=== PATIENT | female | born 1960 | race Caucasian/White ===

== ENCOUNTER → 2016-04-12 | Outpatient (CLI) | payer BC, OTHER ==
[2016-04-12 14:15] LABS: THYROXINE (T4) 11.4 UG/DL (4.5-12.0)
== END ==
LOC: M SMT 09:13
PROVIDERS: ATTEND Family Medicine
DX: E03.9 Hypothyroidism, unspecified (principal)

== ENCOUNTER → 2016-10-01 | Outpatient (CLI) | payer BC, OTHER ==
[2016-10-01 14:06] LABS: THYROXINE (T4) 12.3 UG/DL (4.5-12.0)
== END ==
LOC: M SMT 09:15
PROVIDERS: ATTEND Family Medicine
DX: E03.9 Hypothyroidism, unspecified (principal)

== ENCOUNTER → 2016-12-17 | Outpatient (CLI) | payer BC, OTHER ==
--- NOTE | 2016-12-17 13:10 | REPMRS ---
Patient History The patient states she had a clinical breast exam in July 2016. Family history of unknown cancer in mother at age 68. Digital Mammo Screening Bilat: December 17, 2016 - Exam #: [id number] Bilateral CC and MLO view(s) were taken. Technologist: Patricia Ayala, Technologist Prior study comparison: May 08, 2015, bilateral digital mammo screening bilat performed at [facility]. February 12, 2013, bilateral bilat screen digital mammo, performed at [facility] ([facility]). FINDINGS: The breast tissue is heterogeneously dense. This may lower the sensitivity of mammography. There has been no change in the appearance of the mammogram from the prior studies. There is a moderate amount of residual fibroglandular tissue which is fairly symmetric. There is no interval development of dominant mass, areas of architectural distortion, or clustered microcalcification typical of malignancy. ASSESSMENT: BI-RADS/ACR category 1 mammogram. Negative. Recommendation Routine screening mammogram in 1 year (for women over age 40). This mammogram was interpreted with the aid of an FDA-approved computer-aided dectection system. Electronically Signed By: Chencho Garner MD 12/17/16 [id number]
--- NOTE | 2016-12-17 18:41 | REP ---
HISTORY: Pneumonia. COMPARISON: Multiple, the latest 09/12/2015. Once again, there is evidence of biapical pleural parenchymal scarring, status quo. The cardiomediastinal silhouette is unchanged. The heart is not enlarged. In the right lung base, there is a potential 1.2 cm size nodule which has possibly developed since the last exam. This is seen only on the frontal view. There is no change in the osseous structures. IMPRESSION: Possible new right lower lobe lung nodule. CT examination of the chest is warranted. Signed by Vj Rolon DO 12/20/2016 04:42 P
== END ==
LOC: M RAD 12:07
PROVIDERS: ATTEND Family Medicine
DX: Z12.31 Encounter for screening mammogram for malignant neoplasm of breast (principal); Z87.01 Personal history of pneumonia (recurrent)
CPT/HCPCS: 71020; G0202

== ENCOUNTER → 2016-12-27 | Outpatient (CLI) | payer BC, OTHER ==
[2016-12-27 11:35] LABS: MEAN CORPUSCULAR HEMOGLOBIN 29.7 pg (27.0-33.0); MEAN CORPUSCULAR HGB CONC 32.7 g/dl (32.0-36.5); MEAN CORPUSCULAR VOLUME 90.9 fl (80.0-96.0); RED CELL DISTRIBUTION WIDTH 14.3 % (11.5-14.5); WHITE BLOOD COUNT 17.2 10^3/uL (4.0-10.0)
[2016-12-27 11:48] LABS: ALBUMIN 3.8 GM/DL (3.2-5.2); ALBUMIN/GLOBULIN RATIO 1.65 (1.00-1.93); ALKALINE PHOSPHATASE 70 U/L (45-117); ALT/SGPT 17 U/L (12-78); ANION GAP 6 MEQ/L (8-16); AST/SGOT 7 U/L (15-37); BILIRUBIN,TOTAL 0.5 MG/DL (0.2-1.0); BLOOD UREA NITROGEN 24 MG/DL (7-18); CALCIUM LEVEL 8.9 MG/DL (8.5-10.1); CARBON DIOXIDE LEVEL 29 MEQ/L (21-32); CHLORIDE LEVEL 104 MEQ/L (98-107); CREATININE FOR GFR 0.67 MG/DL (0.55-1.02); GLOMERULAR FILTRATION RATE > 60.0 (>51); GLUCOSE, FASTING 86 MG/DL (70-105); POTASSIUM SERUM 4.2 MEQ/L (3.5-5.1); SODIUM LEVEL 139 MEQ/L (136-145); TOTAL PROTEIN 6.1 GM/DL (6.4-8.2)
== END ==
LOC: M SMT 08:26
PROVIDERS: ATTEND Family Medicine
DX: D64.9 Anemia, unspecified (principal); R53.83 Other fatigue

== ENCOUNTER → 2017-01-04 | Outpatient (CLI) | payer BC, OTHER ==
--- NOTE | 2017-01-05 10:01 | REP ---
Clinical: Right lung nodule. Technique: Axial expiratory and inspiratory noncontrast images from the thoracic inlet to the upper abdomen along with coronal and sagittal re-formations. Comparison: 11/18/2008. Findings: By apical bullae remain stable and presumed biapical scarring appears to be more prominent and increased with nodular soft tissue components and fibrosis extending to the pleural surface. The lung levine are otherwise relatively clear and without further significant pulmonary nodule/mass or consolidation. Tracheobronchial tree is patent and without bronchiectasis. No pleural effusion/reaction or pneumothorax. No obvious axillary, hilar or mediastinal adenopathy. Expiratory images demonstrates appropriate decreased lung volumes without evidence for air trapping or abnormality. Surrounding musculoskeletal structures demonstrate age-related changes without focal osseous abnormality. Mild atherosclerotic changes to the thoracic aorta and coronary arteries noted without aortic aneurysm or cardiomegaly. Impression: 1. Chronic-appearing by apical bullae and increased presumed scarring with nodular soft tissue components likely represent benign changes. However, follow-up examination in 6-9 months may be warranted to exclude active process. 2. No further acute consolidation, nodule/mass, or pleural effusion and no obvious adenopathy appreciated. Signed by Pito Friend MD 01/05/2017 09:53 A
== END ==
LOC: M RAD 08:54
PROVIDERS: ATTEND Family Medicine
DX: R91.1 Solitary pulmonary nodule (principal)

== ENCOUNTER → 2017-03-28 | Outpatient (CLI) | payer OTHER, BC ==
[2017-03-28 12:11] LABS: BASO # 0.1 10^3/uL (0.0-0.2); BASO % 0.6 % (0.0-1.0); EOS # 0.3 10^3/uL (0.0-0.50); EOS % 2.6 % (0.0-3.0); HEMATOCRIT 41.2 % (36.0-47.0); HEMOGLOBIN 13.2 g/dl (12.0-16.0); IMMATURE GRANULOCYTE # 0.1 10^3/uL (0-0); IMMATURE GRANULOCYTE % 0.5 % (0-0); LYMPH # 3.1 10^3/uL (1.5-4.5); LYMPH % 31.1 % (24.0-44.0); MEAN CORPUSCULAR HEMOGLOBIN 29.2 pg (27.0-33.0); MEAN CORPUSCULAR VOLUME 91.2 fl (80.0-96.0); MONO # 0.7 10^3/uL (0.0-0.8); MONO % 6.6 % (0.0-5.0); NEUTROPHILS # 5.8 10^3/uL (1.8-7.7); NEUTROPHILS % 58.6 % (36.0-66.0); PLATELET COUNT, AUTOMATED 301 10^3/uL (150-450); RED BLOOD COUNT 4.52 10^6/uL (4.00-5.40); RED CELL DISTRIBUTION WIDTH 13.5 % (11.5-14.5); WHITE BLOOD COUNT 9.8 10^3/uL (4.0-10.0)
[2017-03-28 14:13] LABS: ERYTHROCYTE SEDIMENTATION RATE 4 mm/hr (0-30)
== END ==
LOC: M SMT 08:40
DX: D72.829 Elevated white blood cell count, unspecified (principal); J44.9 Chronic obstructive pulmonary disease, unspecified; M19.90 Unspecified osteoarthritis, unspecified site
CPT/HCPCS: 85025

== ENCOUNTER 2017-12-19 09:08 | Emergency (ER) | payer BC, OTHER ==
[2017-12-19] MEDS: predniSONE 20 MG TAB PO (09:35)
[2017-12-19] MEDS: ACETAMINOPHEN 325 MG TAB PO (09:35)
[2017-12-19] MEDS: IPRATROPIUM 0.5MG/ALBUTEROL 2.5MG INH SOL UD 3ML (DUONEB)(J7620) NEB (09:39)
== END 2017-12-19 11:04 | disposition home or self-care (01) ==
LOC: M ED 09:08
DX: J06.9 Acute upper respiratory infection, unspecified (principal); J44.1 Chronic obstructive pulmonary disease with (acute) exacerbation; E03.9 Hypothyroidism, unspecified; Z72.0 Tobacco use; Z79.899 Other long term (current) drug therapy; Z88.0 Allergy status to penicillin
CPT/HCPCS: 71046

== ENCOUNTER → 2017-12-29 | Outpatient (CLI) | payer BC, OTHER ==
[2017-12-29 10:37] LABS: HEMATOCRIT 40.9 % (36.0-47.0); HEMOGLOBIN 13.7 g/dl (12.0-15.5); MEAN CORPUSCULAR HEMOGLOBIN 29.9 pg (27.0-33.0); MEAN CORPUSCULAR HGB CONC 33.5 g/dl (32.0-36.5); MEAN CORPUSCULAR VOLUME 89.3 fl (80.0-96.0); PLATELET COUNT, AUTOMATED 320 10^3/uL (150-450); RED BLOOD COUNT 4.58 10^6/uL (4.00-5.40); RED CELL DISTRIBUTION WIDTH 14.6 % (11.5-14.5); WHITE BLOOD COUNT 20.7 10^3/uL (4.0-10.0)
[2017-12-29 11:11] LABS: ESTIMATED AVERAGE GLUCOSE 114 MG/DL (60-110); HEMOGLOBIN A1c 5.6 %
[2017-12-29 11:14] LABS: ALBUMIN 3.9 GM/DL (3.2-5.2); ALBUMIN/GLOBULIN RATIO 1.56 (1.00-1.93); ALKALINE PHOSPHATASE 70 U/L (45-117); ALT/SGPT 22 U/L (12-78); ANION GAP 9 MEQ/L (8-16); AST/SGOT 7 U/L (7-37); BILIRUBIN,TOTAL 0.7 MG/DL (0.2-1.0); BLOOD UREA NITROGEN 23 MG/DL (7-18); CALCIUM LEVEL 8.9 MG/DL (8.5-10.1); CARBON DIOXIDE LEVEL 29 MEQ/L (21-32); CHLORIDE LEVEL 105 MEQ/L (98-107); CHOLESTEROL LEVEL 209 MG/DL (<200); CREATININE FOR GFR 0.74 MG/DL (0.55-1.30); GLOMERULAR FILTRATION RATE > 60.0 (>51); GLUCOSE, FASTING 85 MG/DL (70-100); HDL CHOLESTEROL 76 MG/DL (>40); LDL CHOLESTEROL 106 MG/DL (<100); NON-HDL-C 133 MG/DL; POTASSIUM SERUM 4.2 MEQ/L (3.5-5.1); SODIUM LEVEL 143 MEQ/L (136-145); THYROID STIMULATING HORMONE 0.054 uIU/ML (0.358-3.740); TOTAL PROTEIN 6.4 GM/DL (6.4-8.2); TRIGLYCERIDES LEVEL 137 MG/DL (<150)
[2017-12-29 11:15] LABS: TOTAL 25(OH) VITAMIN D 31.3 NG/ML (30.0-100.0)
== END ==
LOC: M SMT 08:11
DX: D64.9 Anemia, unspecified (principal); R53.83 Other fatigue; E03.9 Hypothyroidism, unspecified
CPT/HCPCS: 84443

== ENCOUNTER → 2018-04-12 | Outpatient (CLI) | payer BC ==
[~2018-04-12] MED LIST: ALBU17IN2 INH; DOXY100C37 PO; PRED20TA PO; SYNT100T PO
--- NOTE | 2018-04-12 11:04 | REPMRS ---
Patient History The patient states she had a clinical breast exam in 12/2017. No known family history of cancer. No Hormone Replacement Therapy Digital Woman Screen Mammo: April 12, 2018 - Exam #: [id number] Bilateral CC and MLO view(s) were taken. Technologist: Katelyn Holguin, Technologist Prior study comparison: December 17, 2016, bilateral digital mammo screening bilat, performed at [facility]. May 08, 2015, bilateral digital mammo screening bilat, performed at [facility]. February 12, 2013, bilateral bilat screen digital mammo, performed at [facility] ([facility]). FINDINGS: The breast tissue is heterogeneously dense. This may lower the sensitivity of mammography. There has been some diffuse involutional change bilaterally in the interval since prior mammography. There is a moderate amount of heterogeneously dense fibroglandular tissue which is fairly symmetric. There is no interval development of dominant mass, architectural distortion, or clustered microcalcification typical of malignancy. There has been no change in the appearance of the mammogram from the prior studies. 3-D tomosynthesis shows no additional findings. Assessment: BI-RADS/ACR category 1 mammogram. Negative Mammogram. Recommendation Routine screening mammogram of both breasts in 1 year (for women over age 40). This patient's Lifetime Breast Cancer RIsk is estimated at 10.5 %. This mammogram was interpreted with the aid of an FDA-approved computer-aided dectection system. Electronically Signed By: Zaid Abad MD 04/12/18 1658
== END ==
LOC: M WHC 10:04
PROVIDERS: ATTEND Family Medicine
DX: Z12.31 Encounter for screening mammogram for malignant neoplasm of breast (principal)

== ENCOUNTER → 2018-05-19 | Outpatient (CLI) | payer BC ==
--- NOTE | 2018-05-19 10:02 | REP ---
Clinical: Back pain and sciatica. Technique: Neutral and frog lateral views of the right and left hip. Findings: Osseous structures, joint spaces, and surrounding soft tissues are essentially normal for age and symmetric. No overt osteoarthritic degenerative changes are appreciated. Surrounding soft tissues are normal. Impression: Age-appropriate bilateral hip radiographs. Electronically Signed by Pito Friend MD 05/19/2018 09:54 A
--- NOTE | 2018-05-23 08:38 | REP ---
Clinical: Back pain and sciatica. Technique: AP, lateral, bilateral oblique and coned-down views of the lumbosacral spine. Findings: Generalized osteopenia is appreciated along with moderate/early advanced multilevel degenerative disc osteophyte complexes. Findings include osteophytosis, endplate sclerosis, scattered disc space narrowing and hypertrophic facet changes. Alignment is maintained and there is no evidence for acute fracture / compression injury or subluxation. Impression: Osteopenia and moderate to early advanced multilevel degenerative spondylosis. Electronically Signed by Pito Friend MD 05/23/2018 08:29 A
== END ==
LOC: M RAD 08:46
PROVIDERS: ATTEND Family Medicine
DX: M85.9 Disorder of bone density and structure, unspecified (principal); M47.817 Spondylosis without myelopathy or radiculopathy, lumbosacral region; M16.0 Bilateral primary osteoarthritis of hip

== ENCOUNTER → 2018-07-14 | Outpatient (CLI) | payer BC ==
--- NOTE | 2018-07-14 11:29 | REP ---
Left rib series: Five views including PA chest. History: Contusion. Comparison study: December 19, 2017. Findings: The lungs are hyperinflated consistent with some degree of COPD. Heart is not enlarged. Mediastinum is not widened. There is no evidence of pneumothorax or hydrothorax. No infiltrate is seen. Multiple views of the left rib cage show mild diffuse osteopenia. No rib fracture is seen. No bony destructive lesion. Impression: Negative left rib radiographs. Electronically Signed by Mateo Abad MD 07/14/2018 11:21 A
--- NOTE | 2018-07-14 11:29 | REP ---
Left hip: Two views. History: Contusion. Findings: AP and frog-leg views of the left hip demonstrate diffuse osteopenia. Femoral head is smooth and rounded. Hip joint spaces preserved. Periarticular soft tissues are unremarkable. No fractures seen. Impression: No fracture noted. Electronically Signed by Mateo Abad MD 07/14/2018 11:21 A
== END ==
LOC: M WUC 10:58
PROVIDERS: ATTEND Physician Assistant
DX: S20.212A Contusion of left front wall of thorax, initial encounter (principal); S70.02XA Contusion of left hip, initial encounter; X58.XXXA Exposure to other specified factors, initial encounter; Y92.89 Other specified places as the place of occurrence of the external cause; R91.8 Other nonspecific abnormal finding of lung field

== ENCOUNTER → 2019-07-03 | Outpatient (CLI) | payer BC ==
[~2019-07-03] MED LIST changes: -ALBU17IN2 INH; +PROV108A INH
[2019-07-03 10:54] LABS: HEMATOCRIT 43.3 % (36.0-47.0); HEMOGLOBIN 14.1 g/dl (12.0-15.5); MEAN CORPUSCULAR HEMOGLOBIN 29.6 pg (27.0-33.0); MEAN CORPUSCULAR HGB CONC 32.6 g/dl (32.0-36.5); PLATELET COUNT, AUTOMATED 282 10^3/uL (150-450); RED BLOOD COUNT 4.76 10^6/uL (4.00-5.40); WHITE BLOOD COUNT 9.4 10^3/uL (4.0-10.0)
[2019-07-03 11:16] LABS: HEMOGLOBIN A1c 5.7 %
[2019-07-03 11:32] LABS: ALT/SGPT 17 U/L (12-78); BILIRUBIN,TOTAL 0.5 MG/DL (0.2-1.0); BLOOD UREA NITROGEN 25 MG/DL (7-18); CALCIUM LEVEL 9.1 MG/DL (8.8-10.2); CARBON DIOXIDE LEVEL 27 MEQ/L (21-32); CHLORIDE LEVEL 107 MEQ/L (98-107); CHOLESTEROL LEVEL 215 MG/DL (<200); CHOLESTEROL RISK RATIO 3.307 (<5); CREATININE FOR GFR 0.62 MG/DL (0.55-1.30); GLOMERULAR FILTRATION RATE > 60.0 (>45); GLUCOSE, FASTING 91 MG/DL (70-100); HDL CHOLESTEROL 65 MG/DL (>40); LDL CHOLESTEROL 135 MG/DL (<100); NON-HDL-C 150 MG/DL; POTASSIUM SERUM 4.8 MEQ/L (3.5-5.1); SODIUM LEVEL 139 MEQ/L (136-145); THYROID STIMULATING HORMONE 0.031 uIU/ML (0.358-3.740); THYROXINE (T4) 11.5 UG/DL (4.5-12.0); TOTAL 25(OH) VITAMIN D 26.1 NG/ML (30.0-100.0); TOTAL PROTEIN 6.8 GM/DL (6.4-8.2); TOTAL T3 122.1 NG/DL (60.0-181.0); TRIGLYCERIDES LEVEL 75 MG/DL (<150)
== END ==
LOC: M PLALAB 08:18
PROVIDERS: ATTEND Family Medicine
DX: D64.9 Anemia, unspecified (principal); R53.83 Other fatigue; E03.9 Hypothyroidism, unspecified; E11.9 Type 2 diabetes mellitus without complications

== ENCOUNTER → 2019-11-08 | Outpatient (CLI) | payer BC ==
--- NOTE | 2019-11-10 12:23 | REPMRS ---
Patient History The patient states she had a clinical breast exam in 03/2019. No known family history of cancer. No Hormone Replacement Therapy Digital Woman Screen Mammo: November 08, 2019 - Exam #: [id number] Bilateral CC and MLO view(s) were taken. Technologist: Selina Guzman, Technologist Prior study comparison: April 12, 2018, bilateral digital woman screen mammo performed at [facility]. December 17, 2016, bilateral digital mammo screening bilat, performed at [facility]. May 08, 2015, bilateral digital mammo screening bilat, performed at [facility]. FINDINGS: The breast tissue is heterogeneously dense. This may lower the sensitivity of mammography. The Volpara volumetric breast density category is: C. There is a moderate amount of heterogeneously dense fibroglandular tissue which is fairly symmetric. There is no interval development of dominant mass, architectural distortion, or grouped microcalcification typical of malignancy. There has been no change in the appearance of the mammogram from the prior studies. 3-D tomosynthesis shows no additional findings. Assessment: BI-RADS/ACR category 1 mammogram. Negative Mammogram. Recommendation Routine screening mammogram of both breasts in 1 year (for women over age 40). This patient's Lifetime Breast Cancer RIsk is estimated at 9.9 %. This mammogram was interpreted with the aid of an FDA-approved computer-aided dectection system. Electronically Signed By: Zaid Abad MD 11/10/19 1100
== END ==
LOC: M WHC 07:49
PROVIDERS: ATTEND Family Medicine
DX: Z12.31 Encounter for screening mammogram for malignant neoplasm of breast (principal)

== ENCOUNTER 2020-02-02 09:36 | Emergency (ER) | payer BC, OTHER ==
[~2020-02-02] VITALS: Ht 162.6 cm; Wt 58.1 kg
[2020-02-02] MEDS ORDERED: PRED10PA PO (09:49)
[2020-02-02] MEDS ORDERED: HYDR-4514 PO (09:49)
[2020-02-02 10:59] LABS: BASO % 0.2 % (0.0-1.0); EOS # 0.4 10^3/uL (0.0-0.5); EOS % 2.6 % (0.0-3.0); HEMATOCRIT 41.9 % (36.0-47.0); HEMOGLOBIN 13.4 g/dl (12.0-15.5); LYMPH # 5.4 10^3/uL (1.5-5.0); LYMPH % 31.3 % (24.0-44.0); MEAN CORPUSCULAR HEMOGLOBIN 29.5 pg (27.0-33.0); MEAN CORPUSCULAR VOLUME 92.3 fl (80.0-96.0); MONO # 0.8 10^3/uL (0.0-0.8); MONO % 4.4 % (0.0-5.0); NEUTROPHILS # 10.4 10^3/uL (1.5-8.5); NEUTROPHILS % 60.9 % (36.0-66.0); PLATELET COUNT, AUTOMATED 244 10^3/uL (150-450); RED BLOOD COUNT 4.54 10^6/uL (4.00-5.40)
[2020-02-02 11:06] LABS: WHITE BLOOD COUNT 17.1 10^3/uL (4.0-10.0)
[2020-02-02 11:29] LABS: ALBUMIN 3.7 GM/DL (3.2-5.2); ALT/SGPT 17 U/L (12-78); BILIRUBIN,DIRECT < 0.1 MG/DL (0.0-0.2); BILIRUBIN,TOTAL 0.4 MG/DL (0.2-1.0); BLOOD UREA NITROGEN 20 MG/DL (7-18); CALCIUM LEVEL 8.7 MG/DL (8.8-10.2); CARBON DIOXIDE LEVEL 28 MEQ/L (21-32); CHLORIDE LEVEL 106 MEQ/L (98-107); CK-MB VALUE MASS 1.4 NG/ML (<3.6); CPK CREATINE PHOSPHOKINASE 38 U/L (26-192); CREATININE FOR GFR 0.62 MG/DL (0.55-1.30); GLOMERULAR FILTRATION RATE > 60.0 (>45); GLUCOSE, FASTING 91 MG/DL (70-100); MB/CK RELATIVE INDEX 3.68 (< OR =4); NT-PRO BNP 131 PG/ML (<125); POTASSIUM SERUM 3.4 MEQ/L (3.5-5.1); SODIUM LEVEL 140 MEQ/L (136-145); THYROID STIMULATING HORMONE 0.205 uIU/ML (0.358-3.740); TOTAL PROTEIN 6.2 GM/DL (6.4-8.2); TROPONIN I < 0.02 NG/ML (< 0.10)
[2020-02-02] MEDS ORDERED: ISOVUE-370 76% 100ML VIAL As Ordered ONE ×2 (11:37→13:30)
[2020-02-02] MEDS ORDERED: KETOROLAC 30 MG/ML 1ML VIAL IV ONE (12:15)
--- NOTE | 2020-02-02 14:26 | REP ---
INDICATION: pleuritic chest pain. COMPARISON: 01/04/2017 TECHNIQUE: CT angio pulmonary arteries. 100 cc Isovue 370. FINDINGS: There is excellent visualization of the pulmonary arterial vasculature. There are no focal filling defects present the would be considered consistent with pulmonary emboli. The thoracic aorta is within normal limits. There are no pleural or pericardial effusions. There is no mediastinal or hilar adenopathy. The imaged upper abdomen is within normal limits. The imaged osseous structures are within normal limits. Evaluation of the lung levine shows biapical pleuroparenchymal scarring status quo. There are stable appearing emphysematous changes. No new abnormal nodules, masses, or opacities have developed. IMPRESSION: 1. No evidence of a pulmonary embolus. 2. Stable appearing chronic lung field changes as described above. <Electronically signed by Vj Rolon > 02/02/20 0072
[2020-02-02] MEDS ORDERED: NAPR-885 PO (14:56)
[2020-02-02 15:06] VITALS: BP 143/89
--- NOTE | 2020-02-04 09:58 | ECGEPIP ---
[facility] - ED Test Date: 2020-02-02 Pat Name: DOROTHY FLEICIANO Department: Room: - Gender: Female Referral Agent: FERNANDZE : 1960 Requested By: PARMJIT SALCEDO Order Number: [id number] Reading MD: Gurpreet Hicks Measurements Intervals [place] Rate: 60 P: 73 SC: 120 QRS: 82 QRSD: 87 T: 51 QT: 367 QTc: 369 Interpretive Statements SINUS RHYTHM WITH SINUS ARRHYTHMIA SIMILAR TO 05/07/15 Electronically Signed on 02-04-2020 9:58:31 EST by Gurpreet Hicks
== END 2020-02-02 15:18 | disposition home or self-care (01) ==
LOC: M ED 09:36
DX: R09.1 Pleurisy (principal); R55 Syncope and collapse; M54.9 Dorsalgia, unspecified; E11.9 Type 2 diabetes mellitus without complications; I10 Essential (primary) hypertension; M19.90 Unspecified osteoarthritis, unspecified site; G47.33 Obstructive sleep apnea (adult) (pediatric); F41.9 Anxiety disorder, unspecified; F32.9 Major depressive disorder, single episode, unspecified; E03.9 Hypothyroidism, unspecified; F17.200 Nicotine dependence, unspecified, uncomplicated; Z88.0 Allergy status to penicillin; Z79.899 Other long term (current) drug therapy; Z79.52 Long term (current) use of systemic steroids
CPT/HCPCS: 71275; 80048; 80076; 82550; 82553; 83880; 84439; 84443; 84484; 85025; 85652; 93005; 93041; 94760; 96374; 99285; J1885; Q9967; U0002

== ENCOUNTER → 2020-02-26 | Outpatient (CLI) | payer BC, OTHER ==
[~2020-02-26] MED LIST changes: +HYDR-4514 PO; +NAPR-885 PO; +PRED10PA PO
[2020-02-26 11:02] LABS: HEMATOCRIT 43.6 % (36.0-47.0); HEMOGLOBIN 14.1 g/dl (12.0-15.5); MEAN CORPUSCULAR HEMOGLOBIN 29.9 pg (27.0-33.0); MEAN CORPUSCULAR HGB CONC 32.3 g/dl (32.0-36.5); MEAN CORPUSCULAR VOLUME 92.4 fl (80.0-96.0); PLATELET COUNT, AUTOMATED 313 10^3/uL (150-450); RED BLOOD COUNT 4.72 10^6/uL (4.00-5.40)
[2020-02-26 11:41] LABS: ALT/SGPT 17 U/L (12-78); BILIRUBIN,TOTAL 0.4 MG/DL (0.2-1.0); BLOOD UREA NITROGEN 16 MG/DL (7-18); CALCIUM LEVEL 9.2 MG/DL (8.8-10.2); CARBON DIOXIDE LEVEL 27 MEQ/L (21-32); CHLORIDE LEVEL 109 MEQ/L (98-107); CHOLESTEROL LEVEL 221 MG/DL (<200); CHOLESTEROL RISK RATIO 3.622 (<5); CREATININE FOR GFR 0.58 MG/DL (0.55-1.30); GLOMERULAR FILTRATION RATE > 60.0 (>45); GLUCOSE, FASTING 98 MG/DL (70-100); HDL CHOLESTEROL 61 MG/DL (>40); LDL CHOLESTEROL 141 MG/DL (<100); NON-HDL-C 160 MG/DL; POTASSIUM SERUM 3.6 MEQ/L (3.5-5.1); SODIUM LEVEL 143 MEQ/L (136-145); THYROID STIMULATING HORMONE 0.031 uIU/ML (0.358-3.740); TOTAL PROTEIN 6.6 GM/DL (6.4-8.2); TRIGLYCERIDES LEVEL 96 MG/DL (<150)
[2020-02-26 12:01] LABS: TOTAL 25(OH) VITAMIN D 28.1 NG/ML (30.0-100.0)
[2020-02-26 12:26] LABS: HEMOGLOBIN A1c 5.5 %
--- NOTE | 2020-02-26 13:14 | REP ---
INDICATION: HTN,COPD/ LABS COMPARISON: 01/16/2020. TECHNIQUE: PA/Lateral FINDINGS: Lungs: Clear, no infiltrate. Heart: Normal in size. Mediastinum: Mediastinal silhouette unremarkable. Pleural angles: Unremarkable.. Bones and soft tissues: There is osteopenia with mild diffuse degenerative changes of the spine. Mild compression deformity of T5 appears new compared to the prior study. Mild compression deformities of T3 and T4 are stable. IMPRESSION: No acute pulmonary disease. Mild compression deformity of the T5 vertebral body appears new compared to prior study of 01/16/2020. <Electronically signed by Chencho Garner > 02/26/20 1316
--- NOTE | 2020-02-26 21:47 | ECGEPIP ---
[facility] Test Date: 2020-02-26 Pat Name: DOROTHY FELICIANO Department: Room: - Gender: Female Manager Occupational: [employer] : 1960 Requested By: Ariel Edwards Order Number: [id number] Reading MD: Oral Valentin Measurements Intervals [place] Rate: 81 P: 61 MD: 151 QRS: 90 QRSD: 91 T: 55 QT: 369 QTc: 430 Interpretive Statements SINUS RHYTHM, Normal ECG. Increased heart rate and no sinus arrhythmia compared with 02/02/2020. Electronically Signed on 02-26-2020 21:47:24 EST by Oral Valentin
== END ==
LOC: M LAB 10:04
PROVIDERS: ATTEND Family Medicine
DX: J44.9 Chronic obstructive pulmonary disease, unspecified (principal); I10 Essential (primary) hypertension

== ENCOUNTER → 2020-12-30 | Outpatient (CLI) | payer BC, OTHER ==
[~2020-12-30] MED LIST changes: -DOXY100C37 PO; +DOXY1CAP62 PO
--- NOTE | 2020-12-30 10:18 | REP ---
INDICATION: PNEUMONIA; COPD COMPARISON: 02/26/2020 TECHNIQUE: PA and lateral. FINDINGS: The mediastinum and cardiac silhouette are normal. The lung levine are clear and without acute consolidation, effusion, or pneumothorax. The skeletal structures are intact and normal. IMPRESSION: No acute cardiopulmonary process. <Electronically signed by Pito Friend > 12/30/20 101
== END ==
LOC: M LAB 09:29 → M RAD 09:29
PROVIDERS: ATTEND Family Medicine
DX: J18.9 Pneumonia, unspecified organism (principal); J44.9 Chronic obstructive pulmonary disease, unspecified

== ENCOUNTER → 2021-09-07 | Outpatient (CLI) | payer BC, OTHER ==
[~2021-09-07] MED LIST changes: +DOXY-443 PO; -DOXY1CAP62 PO
== END ==
LOC: M WUC 13:00
PROVIDERS: ATTEND Physician Assistant
DX: M54.50 Low back pain, unspecified (principal)

== ENCOUNTER → 2021-09-14 | Outpatient (CLI) | payer BC, OTHER | LOC: M RAD 10:27 | PROVIDERS: ATTEND Family Medicine | DX: J44.9 Chronic obstructive pulmonary disease, unspecified (principal) ==

== ENCOUNTER 2021-10-08 08:31 | Emergency (ER) | payer BC, OTHER ==
[~2021-10-08] VITALS: Ht 157.5 cm; Wt 47.6 kg
[2021-10-08 11:32] LABS: BASO # 0.1 10^3/uL (0.0-0.2); BASO % 0.4 % (0.0-1.0); EOS # 0.2 10^3/uL (0.0-0.5); EOS % 1.1 % (0.0-3.0); HEMATOCRIT 44.8 % (36.0-47.0); LYMPH # 2.7 10^3/uL (1.5-5.0); MEAN CORPUSCULAR HEMOGLOBIN 30.7 pg (27.0-33.0); MEAN CORPUSCULAR HGB CONC 33.5 g/dl (32.0-36.5); MEAN CORPUSCULAR VOLUME 91.6 fl (80.0-96.0); MONO # 0.7 10^3/uL (0.0-0.8); MONO % 5.4 % (2.0-8.0); NEUTROPHILS # 9.8 10^3/uL (1.5-8.5); NEUTROPHILS % 72.7 % (36.0-66.0); PLATELET COUNT, AUTOMATED 269 10^3/uL (150-450); RED BLOOD COUNT 4.89 10^6/uL (4.00-5.40); WHITE BLOOD COUNT 13.4 10^3/uL (4.0-10.0)
[2021-10-08 12:10] LABS: ALT/SGPT 15 U/L (12-78); AMYLASE 39 U/L (25-115); BILIRUBIN,DIRECT 0.1 MG/DL (0.0-0.2); BILIRUBIN,TOTAL 0.4 MG/DL (0.2-1.0); BLOOD UREA NITROGEN 13 MG/DL (7-18); CALCIUM LEVEL 9.6 MG/DL (8.8-10.2); CARBON DIOXIDE LEVEL 26 MEQ/L (21-32); CHLORIDE LEVEL 106 MEQ/L (98-107); CREATININE FOR GFR 0.64 MG/DL (0.55-1.30); GLOMERULAR FILTRATION RATE > 60.0 (>45); GLUCOSE, FASTING 99 MG/DL (70-100); LIPASE 52 U/L (73-393); POTASSIUM SERUM 3.6 MEQ/L (3.5-5.1); SODIUM LEVEL 140 MEQ/L (136-145); TOTAL PROTEIN 6.9 GM/DL (6.4-8.2)
[2021-10-08 12:14] LABS: CK-MB VALUE MASS < 1.0 NG/ML (<3.6); CPK CREATINE PHOSPHOKINASE 28 U/L (26-192); MB/CK RELATIVE INDEX 3.57 (< OR =4)
[2021-10-08] MEDS ORDERED: GI COCKTAIL 50ML BTL(HYOSCYAMINE/MAALOX/LIDOCAINE VISCOUS)(1:3:1) PO ONE (13:05)
[2021-10-08] MEDS ORDERED: NEXI20CA33 PO (14:06)
[2021-10-08] MEDS ORDERED: SUCR1SS PO (14:06)
[2021-10-08 14:20] VITALS: BP 125/72
== END 2021-10-08 14:15 | disposition home or self-care (01) ==
LOC: M ED 08:31
DX: K29.70 Gastritis, unspecified, without bleeding (principal); J44.9 Chronic obstructive pulmonary disease, unspecified; E03.9 Hypothyroidism, unspecified; Z79.899 Other long term (current) drug therapy; Z79.890 Hormone replacement therapy; Z88.0 Allergy status to penicillin; Z88.1 Allergy status to other antibiotic agents; F17.200 Nicotine dependence, unspecified, uncomplicated

== ENCOUNTER → 2021-10-22 | Outpatient (CLI) | payer BC, OTHER ==
[~2021-10-22] MED LIST changes: +E-Z-GAS II EFFERVESCENT PACKET (SODIUM BICARB./CITRIC ACID/SIMETHICONE) As Ordered ONE; +E-Z-HD 98% w/w 340GM SUSP BTL As Ordered ONE; +E-Z-PAQUE 96% w/w SUSP 176GM BTL As Ordered ONE; +NEXI20CA33 PO; +SUCR1SS PO
== END ==
LOC: M RAD 08:37
PROVIDERS: ATTEND Family Medicine
DX: R13.10 Dysphagia, unspecified (principal)

== ENCOUNTER → 2022-10-14 | Outpatient (CLI) | payer BC, OTHER ==
[~2022-10-14] MED LIST changes: +ALBU6.7H6 INH; -E-Z-GAS II EFFERVESCENT PACKET (SODIUM BICARB./CITRIC ACID/SIMETHICONE) As Ordered ONE; -E-Z-HD 98% w/w 340GM SUSP BTL As Ordered ONE; -E-Z-PAQUE 96% w/w SUSP 176GM BTL As Ordered ONE; -PROV108A INH
[2022-10-14 10:33] LABS: HEMATOCRIT 47.5 % (36.0-47.0); HEMOGLOBIN 15.3 g/dl (12.0-15.5); MEAN CORPUSCULAR HEMOGLOBIN 30.4 pg (27.0-33.0); MEAN CORPUSCULAR HGB CONC 32.2 g/dl (32.0-36.5); MEAN CORPUSCULAR VOLUME 94.4 fl (80.0-96.0); PLATELET COUNT, AUTOMATED 300 10^3/uL (150-450); RED BLOOD COUNT 5.03 10^6/uL (4.00-5.40); WHITE BLOOD COUNT 12.5 10^3/uL (4.0-10.0)
[2022-10-14 10:44] LABS: ALBUMIN 3.6 G/DL (3.2-5.2); ALKALINE PHOSPHATASE 67 U/L (46-116); ALT/SGPT 17 U/L (7.0-40); AST/SGOT 9 U/L (<34); BILIRUBIN,TOTAL 0.7 MG/DL (0.3-1.2); BLOOD UREA NITROGEN 20 MG/DL (9-23); CALCIUM LEVEL 9.1 MG/DL (8.3-10.6); CARBON DIOXIDE LEVEL 28 MMOL/L (20-31); CHLORIDE LEVEL 107 MMOL/L (98-107); CREATININE FOR GFR 0.65 MG/DL (0.55-1.30); GLOMERULAR FILTRATION RATE > 60.0 (>45); GLUCOSE, FASTING 91 MG/DL (74-106); POTASSIUM SERUM 4.1 MMOL/L (3.5-5.1); SODIUM LEVEL 142 MMOL/L (136-145); TOTAL PROTEIN 5.9 G/DL (5.7-8.2)
[2022-10-14 10:46] LABS: THYROID STIMULATING HORMONE 0.214 uIU/ML (0.55-4.78)
[2022-10-14 11:10] LABS: HEMOGLOBIN A1c 5.3 % (4.0-6.0)
== END ==
LOC: M RAD 09:22
PROVIDERS: ATTEND Family Medicine
DX: J44.9 Chronic obstructive pulmonary disease, unspecified (principal); I10 Essential (primary) hypertension; R53.83 Other fatigue

== ENCOUNTER 2022-11-11 09:51 | Emergency (ER) | payer BC, OTHER ==
[~2022-11-11] VITALS: Ht 157.5 cm; Wt 40.9 kg
[2022-11-11 09:51] VITALS: TEMP 97.5
[2022-11-11 10:55] LABS: BASO # 0.1 10^3/uL (0.0-0.2); BASO % 0.3 % (0.0-1.0); EOS # 0.1 10^3/uL (0.0-0.5); EOS % 0.6 % (0.0-3.0); HEMATOCRIT 45.6 % (36.0-47.0); HEMOGLOBIN 15.4 g/dl (12.0-15.5); LYMPH # 2.9 10^3/uL (1.5-5.0); LYMPH % 18.5 % (24.0-44.0); MEAN CORPUSCULAR HEMOGLOBIN 30.4 pg (27.0-33.0); MEAN CORPUSCULAR HGB CONC 33.8 g/dl (32.0-36.5); MEAN CORPUSCULAR VOLUME 89.9 fl (80.0-96.0); MONO # 1.1 10^3/uL (0.0-0.8); MONO % 6.9 % (2.0-8.0); NEUTROPHILS # 11.3 10^3/uL (1.5-8.5); NEUTROPHILS % 73.2 % (36.0-66.0); PLATELET COUNT, AUTOMATED 267 10^3/uL (150-450); RED BLOOD COUNT 5.07 10^6/uL (4.00-5.40); WHITE BLOOD COUNT 15.4 10^3/uL (4.0-10.0)
[2022-11-11 11:12] LABS: INR 0.92; PROTHROMBIN TIME 12.1 SECONDS (12.5-14.5)
[2022-11-11 11:24] LABS: CK-MB VALUE MASS < 1.0 NG/ML (<3.6)
[2022-11-11 11:25] LABS: LIPASE 29 U/L (12-53)
[2022-11-11] MEDS ORDERED: IPRATROPIUM 0.5MG/ALBUTEROL 2.5MG INH SOL UD 3ML (DUONEB) NEB PRN (11:25)
[2022-11-11] MEDS ORDERED: AZITHROMYCIN 250MG TABLET PO ONE (11:25)
[2022-11-11] MEDS ORDERED: methylPREDNISolone 125MG 2ML VIAL IV ONE (11:25)
[2022-11-11] MEDS ORDERED: NS 1,000 ML IV ONE (11:25)
[2022-11-11] MEDS ORDERED: cefTRIAXone SOD 1 GM in D5W MINI-BAG PLUS 50 ML IV ONE (11:25)
[2022-11-11 11:27] LABS: ALBUMIN 3.7 G/DL (3.2-5.2); ALKALINE PHOSPHATASE 69 U/L (46-116); ALT/SGPT 15 U/L (7.0-40); AST/SGOT 11 U/L (<34); BILIRUBIN,DIRECT 0.1 MG/DL (<0.4); BILIRUBIN,TOTAL 0.4 MG/DL (0.3-1.2); TOTAL PROTEIN 6.2 G/DL (5.7-8.2)
[2022-11-11 11:30] LABS: CPK CREATINE PHOSPHOKINASE 47 U/L (34-145); MB/CK RELATIVE INDEX 2.12 (< OR =4)
[2022-11-11] MEDS ORDERED: KETOROLAC 30 MG/ML 1ML VIAL IV ONE (11:55)
[2022-11-11 12:36] LABS: RSV AMPLIFICATION NEGATIVE (NEGATIVE)
[2022-11-11 13:30] VITALS: BP 155/89
[2022-11-11 13:36] VITALS: O2SAT 95
[2022-11-11 13:47] VITALS: O2SAT 92
[2022-11-11] MEDS ORDERED: CEFD300C PO (13:51)
[2022-11-11] MEDS ORDERED: DOXY100C82 PO (13:51)
[2022-11-11] MEDS ORDERED: ALBU8.5H INH (13:51)
[2022-11-11] MEDS ORDERED: BENZ200C70 PO (13:51)
[2022-11-11] MEDS ORDERED: POTASSIUM CHLORIDE 10MEQ SR TABLET PO ONE (14:05)
[2022-11-11] MEDS ORDERED: TRAM50TA2 PO (15:50)
== END 2022-11-11 14:34 | disposition home or self-care (01) ==
LOC: M ED 09:51
DX: J18.9 Pneumonia, unspecified organism (principal); R07.89 Other chest pain; J44.9 Chronic obstructive pulmonary disease, unspecified; E03.9 Hypothyroidism, unspecified; F17.200 Nicotine dependence, unspecified, uncomplicated; Z88.0 Allergy status to penicillin; Z88.1 Allergy status to other antibiotic agents; Z79.899 Other long term (current) drug therapy
CPT/HCPCS: 71045; 80047; 80076; 82550; 82553; 83605; 83690; 84484; 85025; 85610; 87040; 87631; 93005; 93041; 94640; 94760; 96361; 96365; 96375; 99285; J0696; J1885; J2930

== ENCOUNTER 2022-11-15 08:13 | Inpatient (IN) | payer BC, OTHER ==
[~2022-11-15] VITALS: Ht 157.5 cm; Wt 39.7 kg
[~2022-11-15 08:13] MED LIST changes: +ALBU8.5H INH; +BENZ200C70 PO; +CEFD300C PO; +DOXY100C82 PO; +TRAM50TA2 PO
[2022-11-15] MEDS ORDERED: NS 1,000 ML IV ONE (09:25)
[2022-11-15] MEDS ORDERED: ONDANSETRON 4MG 2ML VIAL IV ONE (09:25)
[2022-11-15] MEDS ORDERED: ISOVUE-370 76% 100ML VIAL As Ordered ONE (09:34)
[2022-11-15 09:39] LABS: BASO # 0.1 10^3/uL (0.0-0.2); BASO % 0.4 % (0.0-1.0); EOS # 0.2 10^3/uL (0.0-0.5); EOS % 1.3 % (0.0-3.0); HEMATOCRIT 46.8 % (36.0-47.0); HEMOGLOBIN 15.9 g/dl (12.0-15.5); LYMPH # 1.6 10^3/uL (1.5-5.0); LYMPH % 10.9 % (24.0-44.0); MEAN CORPUSCULAR HEMOGLOBIN 30.2 pg (27.0-33.0); MEAN CORPUSCULAR VOLUME 88.8 fl (80.0-96.0); MONO # 0.9 10^3/uL (0.0-0.8); MONO % 6.3 % (2.0-8.0); NEUTROPHILS # 12.1 10^3/uL (1.5-8.5); NEUTROPHILS % 80.4 % (36.0-66.0); PLATELET COUNT, AUTOMATED 269 10^3/uL (150-450); RED BLOOD COUNT 5.27 10^6/uL (4.00-5.40)
[2022-11-15 10:03] LABS: ALBUMIN 3.7 G/DL (3.2-5.2); ALKALINE PHOSPHATASE 72 U/L (46-116); ALT/SGPT 12 U/L (7.0-40); AST/SGOT < 8 U/L (<34); BILIRUBIN,DIRECT 0.2 MG/DL (<0.4); BILIRUBIN,TOTAL 0.8 MG/DL (0.3-1.2); TOTAL PROTEIN 6.3 G/DL (5.7-8.2)
[2022-11-15] MEDS ORDERED: MED REC IN PROGRESS XX SCH (12:00)
[2022-11-15] MEDS ORDERED: ACETAMINOPHEN TAB 650MG DOSE (2X325MG) PO PRN (12:45)
[2022-11-15] MEDS ORDERED: ALBUTEROL SULFATE 2.5MG/0.5ML INH NEB SOLN NEB PRN (13:30)
[2022-11-15 13:54] LABS: INR 1.1; PROTHROMBIN TIME 13.9 SECONDS (12.5-14.5)
[2022-11-15 13:55] LABS: PARTIAL THROMBOPLASTIN TIME 30.3 SECONDS (24.8-34.2)
[2022-11-15] MEDS ORDERED: cefTRIAXone SOD 1 GM in D5W MINI-BAG PLUS 50 ML IV SCH (14:00)
[2022-11-15] MEDS: DOXYCYCLINE HYCLATE 100MG TABLET PO SCH ×2 (14:02→20:27)
[2022-11-15] MEDS: NICOTINE 21MG/24HR 1 EA TRANSDERMAL TD SCH (14:02)
[2022-11-15] MEDS: predniSONE 20 MG TAB PO SCH (14:03)
[2022-11-15 14:10] LABS: ALBUMIN 3.5 G/DL (3.2-5.2); ALKALINE PHOSPHATASE 64 U/L (46-116); ALT/SGPT 11 U/L (7.0-40); AST/SGOT 8 U/L (<34); BILIRUBIN,TOTAL 0.8 MG/DL (0.3-1.2); BLOOD UREA NITROGEN 10 MG/DL (9-23); CALCIUM LEVEL 8.8 MG/DL (8.3-10.6); CARBON DIOXIDE LEVEL 23 MMOL/L (20-31); CHLORIDE LEVEL 108 MMOL/L (98-107); CREATININE FOR GFR 0.52 MG/DL (0.55-1.30); GLOMERULAR FILTRATION RATE > 60.0 (>45); GLUCOSE, FASTING 88 MG/DL (74-106); POTASSIUM SERUM 3.6 MMOL/L (3.5-5.1); SODIUM LEVEL 140 MMOL/L (136-145); TOTAL PROTEIN 5.9 G/DL (5.7-8.2)
[2022-11-15 14:50] VITALS: BP 143/84; TEMP 98.8; O2SAT 94
[2022-11-15] MEDS: IPRATROPIUM 0.5MG/ALBUTEROL 2.5MG INH SOL UD 3ML (DUONEB) NEB SCH ×2 (15:53→20:09)
[2022-11-15] MEDS ORDERED: HOME MED LIST COMPLETE! XX SCH (16:20)
[2022-11-15] MEDS ORDERED: BENZONATATE 100MG CAPSULE PO PRN (17:45)
[2022-11-15 18:13] LABS: PROCALCITONIN 0.04 ng/ml
[2022-11-15 21:02] VITALS: BP 107/62; TEMP 98.8; O2SAT 92
[2022-11-15] MEDS: traMADol 50 MG TAB PO PRN (21:19)
[2022-11-16 05:30] VITALS: BP 109/68; TEMP 98.2; O2SAT 94
[2022-11-16] MEDS: LEVOTHYROXINE 100MCG TABLET (0.1MG) PO SCH (05:43)
[2022-11-16 05:57] LABS: HEMATOCRIT 41.8 % (36.0-47.0); HEMOGLOBIN 14.1 g/dl (12.0-15.5); MEAN CORPUSCULAR HEMOGLOBIN 29.9 pg (27.0-33.0); MEAN CORPUSCULAR HGB CONC 33.7 g/dl (32.0-36.5); MEAN CORPUSCULAR VOLUME 88.6 fl (80.0-96.0); PLATELET COUNT, AUTOMATED 254 10^3/uL (150-450); RED BLOOD COUNT 4.72 10^6/uL (4.00-5.40)
[2022-11-16 06:29] LABS: ALBUMIN 3.1 G/DL (3.2-5.2); ALKALINE PHOSPHATASE 60 U/L (46-116); ALT/SGPT 11 U/L (7.0-40); AST/SGOT < 8 U/L (<34); BILIRUBIN,TOTAL 0.4 MG/DL (0.3-1.2); BLOOD UREA NITROGEN 18 MG/DL (9-23); CALCIUM LEVEL 9.1 MG/DL (8.3-10.6); CARBON DIOXIDE LEVEL 24 MMOL/L (20-31); CHLORIDE LEVEL 106 MMOL/L (98-107); CREATININE FOR GFR 0.56 MG/DL (0.55-1.30); GLOMERULAR FILTRATION RATE > 60.0 (>45); GLUCOSE, FASTING 112 MG/DL (74-106); POTASSIUM SERUM 3.8 MMOL/L (3.5-5.1); SODIUM LEVEL 139 MMOL/L (136-145); TOTAL PROTEIN 5.5 G/DL (5.7-8.2)
[2022-11-16] MEDS: IPRATROPIUM 0.5MG/ALBUTEROL 2.5MG INH SOL UD 3ML (DUONEB) NEB SCH (07:37)
[2022-11-16] MEDS: ALBUTEROL SULFATE 2.5MG/0.5ML INH NEB SOLN NEB SCH ×3 (08:10→19:49)
[2022-11-16] MEDS ORDERED: IPRATROPIUM 0.5MG/ALBUTEROL 2.5MG INH SOL UD 3ML (DUONEB) NEB PRN (08:10)
[2022-11-16] MEDS: traMADol 50 MG TAB PO PRN (09:22)
[2022-11-16] MEDS: predniSONE 20 MG TAB PO SCH (09:22)
[2022-11-16] MEDS: NICOTINE 21MG/24HR 1 EA TRANSDERMAL TD SCH (09:23)
[2022-11-16] MEDS: DOXYCYCLINE HYCLATE 100MG TABLET PO SCH (09:23)
[2022-11-16] MEDS: TIOTROPIUM INHALER/CAPSULE (SPIRIVA) INH SCH (13:07)
[2022-11-16 14:00] VITALS: BP 108/61; TEMP 98.2; O2SAT 94
[2022-11-16] MEDS: metroNIDAZOLE 500 MG in IV 1 EA IV SCH ×2 (14:45→22:02)
[2022-11-16] MEDS: PERCOCET 5MG/325MG TAB PO PRN ×2 (14:46→22:02)
[2022-11-16] MEDS: CEFTAROLINE FOSAMIL 600 MG in D5W MINI-BAG PLUS 50 ML IV SCH (16:05)
[2022-11-16 19:22] VITALS: BP 109/61; TEMP 98.4; O2SAT 95
[2022-11-17] MEDS: ALBUTEROL SULFATE 2.5MG/0.5ML INH NEB SOLN NEB SCH ×4 (01:43→20:08)
[2022-11-17] MEDS: CEFTAROLINE FOSAMIL 600 MG in D5W MINI-BAG PLUS 50 ML IV SCH ×2 (03:13→15:21)
[2022-11-17] MEDS: metroNIDAZOLE 500 MG in IV 1 EA IV SCH ×3 (05:45→21:47)
[2022-11-17] MEDS: LEVOTHYROXINE 100MCG TABLET (0.1MG) PO SCH (05:45)
[2022-11-17] MEDS: PERCOCET 5MG/325MG TAB PO PRN ×4 (05:46→20:44)
[2022-11-17 06:00] VITALS: BP 118/59; TEMP 98.1; O2SAT 94
[2022-11-17] MEDS: TIOTROPIUM INHALER/CAPSULE (SPIRIVA) INH SCH (08:03)
[2022-11-17] MEDS: NICOTINE 21MG/24HR 1 EA TRANSDERMAL TD SCH (08:57)
[2022-11-17] MEDS ORDERED: predniSONE 20 MG TAB PO SCH (09:00)
[2022-11-17 09:41] LABS: BASO % 0.2 % (0.0-1.0); EOS # 0.1 10^3/uL (0.0-0.5); EOS % 0.3 % (0.0-3.0); HEMATOCRIT 40.4 % (36.0-47.0); HEMOGLOBIN 13.6 g/dl (12.0-15.5); LYMPH # 2.7 10^3/uL (1.5-5.0); LYMPH % 14.3 % (24.0-44.0); MEAN CORPUSCULAR HEMOGLOBIN 30.6 pg (27.0-33.0); MEAN CORPUSCULAR HGB CONC 33.7 g/dl (32.0-36.5); MEAN CORPUSCULAR VOLUME 90.8 fl (80.0-96.0); NEUTROPHILS # 14.1 10^3/uL (1.5-8.5); NEUTROPHILS % 75.3 % (36.0-66.0); PLATELET COUNT, AUTOMATED 250 10^3/uL (150-450); RED BLOOD COUNT 4.45 10^6/uL (4.00-5.40); WHITE BLOOD COUNT 18.8 10^3/uL (4.0-10.0)
[2022-11-17 10:06] LABS: MONO # 1.7 10^3/uL (0.0-0.8)
[2022-11-17 10:20] LABS: BLOOD UREA NITROGEN 26 MG/DL (9-23); CALCIUM LEVEL 8.9 MG/DL (8.3-10.6); CARBON DIOXIDE LEVEL 26 MMOL/L (20-31); CHLORIDE LEVEL 108 MMOL/L (98-107); CREATININE FOR GFR 0.66 MG/DL (0.55-1.30); GLOMERULAR FILTRATION RATE > 60.0 (>45); GLUCOSE, FASTING 100 MG/DL (74-106); POTASSIUM SERUM 2.9 MMOL/L (3.5-5.1); SODIUM LEVEL 145 MMOL/L (136-145)
[2022-11-17] MEDS ORDERED: POTASSIUM CHLORIDE 10MEQ SR TABLET PO ONE ×2 (11:00→13:25)
[2022-11-17 14:00] VITALS: BP 106/64; TEMP 98.8; O2SAT 92
[2022-11-17 21:25] VITALS: BP 110/68; TEMP 98.6; O2SAT 94
[2022-11-18] MEDS: ALBUTEROL SULFATE 2.5MG/0.5ML INH NEB SOLN NEB SCH ×4 (01:17→19:03)
[2022-11-18] MEDS: CEFTAROLINE FOSAMIL 600 MG in D5W MINI-BAG PLUS 50 ML IV SCH ×2 (03:09→15:07)
[2022-11-18] MEDS: PERCOCET 5MG/325MG TAB PO PRN ×2 (03:10→08:28)
[2022-11-18 05:01] VITALS: BP 116/73; TEMP 98.6; O2SAT 94
[2022-11-18] MEDS: metroNIDAZOLE 500 MG in IV 1 EA IV SCH ×3 (05:44→21:15)
[2022-11-18] MEDS: LEVOTHYROXINE 100MCG TABLET (0.1MG) PO SCH (05:45)
[2022-11-18] MEDS: TIOTROPIUM INHALER/CAPSULE (SPIRIVA) INH SCH (07:15)
[2022-11-18] MEDS: predniSONE 10MG TAB PO SCH (08:27)
[2022-11-18] MEDS: NICOTINE 21MG/24HR 1 EA TRANSDERMAL TD SCH (08:27)
[2022-11-18] MEDS: traMADol 50 MG TAB PO PRN (10:22)
[2022-11-18] MEDS: NORCO, ANEXSIA 5/325MG TABLET (HYDROcodone/ACETAMINOPHEN) PO SCH ×2 (13:57→18:22)
[2022-11-18 14:00] VITALS: BP 117/74; TEMP 98.2; O2SAT 94
[2022-11-18] MEDS: oxyCODONE 5MG TAB PO PRN ×2 (15:13→21:14)
[2022-11-18] MEDS ORDERED: KETOROLAC 30 MG/ML 1ML VIAL IV ONE (18:45)
[2022-11-18 20:35] VITALS: BP 104/59; TEMP 98.2; O2SAT 94
[2022-11-18] MEDS ORDERED: D5W/0.9% SODIUM CHLORIDE 1,000 ML IV SCH (23:55)
[2022-11-19] VITALS (7 sets, daily range): BP systolic 106–137; BP diastolic 58–81; TEMP 97.9–98.8; O2SAT 89–96
[2022-11-19] MEDS: NORCO, ANEXSIA 5/325MG TABLET (HYDROcodone/ACETAMINOPHEN) PO SCH ×5 (00:34→23:28)
[2022-11-19] MEDS: ALBUTEROL SULFATE 2.5MG/0.5ML INH NEB SOLN NEB SCH ×4 (01:26→20:12)
[2022-11-19] MEDS: CEFTAROLINE FOSAMIL 600 MG in D5W MINI-BAG PLUS 50 ML IV SCH ×2 (03:41→14:05)
[2022-11-19] MEDS: LEVOTHYROXINE 100MCG TABLET (0.1MG) PO SCH (06:08)
[2022-11-19] MEDS: metroNIDAZOLE 500 MG in IV 1 EA IV SCH (06:08)
[2022-11-19] MEDS: TIOTROPIUM INHALER/CAPSULE (SPIRIVA) INH SCH (07:12)
[2022-11-19] MEDS ORDERED: CETACAINE SPRAY 5GM As Ordered ONE (07:19)
[2022-11-19] MEDS ORDERED: THROMBIN 5,000 UNITS VIAL As Ordered ONE (07:19)
[2022-11-19] MEDS ORDERED: EPINEPHrine 1MG/10ML SYRINGE 1.5IN As Ordered ONE (07:19)
[2022-11-19] MEDS ORDERED: LIDOCAINE 2% 100MG/5ML SDV (FOR ANES.) As Ordered ONE (07:58)
[2022-11-19] MEDS ORDERED: fentaNYL 100 MCG/2 ML INJECTION As Ordered ONE (07:58)
[2022-11-19] MEDS ORDERED: ONDANSETRON 4MG 2ML VIAL As Ordered ONE (07:58)
[2022-11-19] MEDS ORDERED: PHENYLephrine 500MCG 5ML (100MCG/ML) SYRINGE As Ordered ONE (07:58)
[2022-11-19] MEDS ORDERED: propofoL 200 MG/20 ML VIAL As Ordered ONE (07:58)
[2022-11-19] MEDS ORDERED: MIDAZOLAM INJ 2MG/2ML VIAL As Ordered ONE (07:58)
[2022-11-19] MEDS ORDERED: ROCURONIUM BROMIDE 50MG/5ML VIAL As Ordered ONE (07:58)
[2022-11-19] MEDS ORDERED: SUGAMMADEX SODIUM 500 MG/5 ML VIAL (BRIDION) As Ordered ONE (08:01)
[2022-11-19] MEDS ORDERED: fentaNYL 100 MCG/2 ML INJECTION IV PRN (08:40)
[2022-11-19] MEDS ORDERED: METOCLOPRAMIDE INJ 10MG/2ML VIAL IV PRN (08:40)
[2022-11-19] MEDS ORDERED: oxyCODONE 5MG TAB PO PRN (08:40)
[2022-11-19] MEDS ORDERED: LR 1,000 ML IV SCH (08:40)
[2022-11-19] MEDS ORDERED: ONDANSETRON 4MG 2ML VIAL IV PRN (08:40)
[2022-11-19] MEDS: predniSONE 10MG TAB PO SCH (09:56)
[2022-11-19] MEDS ORDERED: KETOROLAC 30 MG/ML 1ML VIAL IV SCH (11:30)
[2022-11-19] MEDS ORDERED: PROHANCE 279.3MG/ML 5ML VIAL As Ordered ONE (11:51)
[2022-11-19] MEDS: NICOTINE 21MG/24HR 1 EA TRANSDERMAL TD SCH (13:20)
[2022-11-19] MEDS: KETOROLAC 30 MG/ML 1ML VIAL IV SCH ×3 (13:21→23:29)
[2022-11-19] MEDS: metroNIDAZOLE (FLAGYL) 500MG TABLET PO SCH ×2 (14:05→22:14)
[2022-11-20] MEDS: ALBUTEROL SULFATE 2.5MG/0.5ML INH NEB SOLN NEB SCH ×3 (01:49→13:39)
[2022-11-20] MEDS: CEFTAROLINE FOSAMIL 600 MG in D5W MINI-BAG PLUS 50 ML IV SCH (02:23)
[2022-11-20] MEDS: KETOROLAC 30 MG/ML 1ML VIAL IV SCH ×2 (05:33→12:00)
[2022-11-20] MEDS: NORCO, ANEXSIA 5/325MG TABLET (HYDROcodone/ACETAMINOPHEN) PO SCH ×2 (05:34→11:59)
[2022-11-20] MEDS: LEVOTHYROXINE 100MCG TABLET (0.1MG) PO SCH (05:34)
[2022-11-20] MEDS: metroNIDAZOLE (FLAGYL) 500MG TABLET PO SCH (05:34)
[2022-11-20 06:00] VITALS: BP 123/67; TEMP 98.6; O2SAT 92
[2022-11-20] MEDS: TIOTROPIUM INHALER/CAPSULE (SPIRIVA) INH SCH (07:42)
[2022-11-20] MEDS: NICOTINE 21MG/24HR 1 EA TRANSDERMAL TD SCH (08:44)
[2022-11-20] MEDS: predniSONE 10MG TAB PO SCH (08:44)
[2022-11-20 08:49] LABS: BASO % 0.2 % (0.0-1.0); EOS % 0.1 % (0.0-3.0); HEMATOCRIT 39.4 % (36.0-47.0); HEMOGLOBIN 12.8 g/dl (12.0-15.5); LYMPH # 2.4 10^3/uL (1.5-5.0); LYMPH % 13.6 % (24.0-44.0); MEAN CORPUSCULAR HEMOGLOBIN 29.8 pg (27.0-33.0); MEAN CORPUSCULAR HGB CONC 32.5 g/dl (32.0-36.5); MEAN CORPUSCULAR VOLUME 91.6 fl (80.0-96.0); NEUTROPHILS % 75.2 % (36.0-66.0); PLATELET COUNT, AUTOMATED 233 10^3/uL (150-450); WHITE BLOOD COUNT 17.3 10^3/uL (4.0-10.0)
[2022-11-20 09:12] LABS: BLOOD UREA NITROGEN 27 MG/DL (9-23); CALCIUM LEVEL 8.4 MG/DL (8.3-10.6); CARBON DIOXIDE LEVEL 29 MMOL/L (20-31); CHLORIDE LEVEL 106 MMOL/L (98-107); CREATININE FOR GFR 0.85 MG/DL (0.55-1.30); GLOMERULAR FILTRATION RATE > 60.0 (>45); GLUCOSE, FASTING 78 MG/DL (74-106); POTASSIUM SERUM 3.4 MMOL/L (3.5-5.1); SODIUM LEVEL 142 MMOL/L (136-145)
[2022-11-20 09:17] LABS: MONO # 1.7 10^3/uL (0.0-0.8)
[2022-11-20 10:58] VITALS: BP 123/71; TEMP 98.2; O2SAT 92
[2022-11-20] MEDS ORDERED: OXYC-517 PO (11:15)
[2022-11-20] MEDS ORDERED: CEFD300CAP PO (11:15)
[2022-11-20] MEDS ORDERED: PANT40TA29 PO (11:15)
[2022-11-20] MEDS ORDERED: IPRA0.00 IN (11:15)
[2022-11-20] MEDS ORDERED: IBUP-1022 PO (11:15)
[2022-11-20] MEDS ORDERED: HYDR-3715 PO (11:15)
[2022-11-20] MEDS ORDERED: TIOT18INH INH (11:15)
[2022-11-20] MEDS ORDERED: BREO1INH3 PO (11:15)
[2022-11-20] MEDS ORDERED: CEFDINIR 300 MG CAP (OMNICEF) PO SCH (18:00)
== END 2022-11-20 14:28 | disposition home or self-care (01) | DRG 136 ==
LOC: M ED 08:13 → M ED INP 12:43 → ENRESERV 13:57 → M MSPAV 14:50
PROVIDERS: ADMIT Internal Medicine; ATTEND Internal Medicine Nephrology
PROC: B246ZZZ Ultrasonography of Right and Left Heart (ICD-10-PCS; 2022-11-19)
PROC: 0BDG8ZX Extraction of Left Upper Lung Lobe, Via Natural or Artificial Opening Endoscopic, Diagnostic (ICD-10-PCS; principal; 2022-11-19 07:30)
DX: C34.12 Malignant neoplasm of upper lobe, left bronchus or lung (principal); I31.39 Other pericardial effusion (noninflammatory); J18.9 Pneumonia, unspecified organism; J44.0 Chronic obstructive pulmonary disease with (acute) lower respiratory infection; J90 Pleural effusion, not elsewhere classified; J44.1 Chronic obstructive pulmonary disease with (acute) exacerbation; J93.81 Chronic pneumothorax; R06.02 Shortness of breath; E03.9 Hypothyroidism, unspecified; R59.0 Localized enlarged lymph nodes; J98.11 Atelectasis; F17.200 Nicotine dependence, unspecified, uncomplicated; R63.4 Abnormal weight loss; Z79.890 Hormone replacement therapy; Z79.899 Other long term (current) drug therapy; Z88.0 Allergy status to penicillin; Z88.1 Allergy status to other antibiotic agents; Z96.652 Presence of left artificial knee joint; Z90.49 Acquired absence of other specified parts of digestive tract

== ENCOUNTER 2023-01-10 13:43 | Outpatient (CLI) | payer BC, OTHER ==
[~2023-01-10] VITALS: Ht 152.4 cm; Wt 39.0 kg
[~2023-01-10 13:43] MED LIST changes: +BREO1INH3 PO; +BUDE0.254 NEB; +CEFD300CAP PO; +HYDR-3715 PO; +IBUP-1022 PO; +IPRA0.00 IN; +IPRA0.00 INH; +MAGICMW PO; +OMEP-173 PO; +ONDA8TAB8 PO; +OXYC-517 PO; +OXYC1SOL3 PO; +PANT40TA29 PO; +PROC10TA5 PO; +TIOT18INH INH
[2023-01-10 13:55] VITALS: BP 98/64; O2SAT 97
[2023-01-10] MEDS ORDERED: NS 1,000 ML IV SCH (14:05)
[2023-01-10] MEDS ORDERED: dexAMETHasone 20MG/5ML VIAL IV ONE (14:05)
[2023-01-10 15:28] VITALS: BP 122/73; O2SAT 99
== END 2023-01-10 15:30 | disposition home or self-care (01) ==
LOC: M INFU 13:43
PROVIDERS: ATTEND General Practice
DX: C34.12 Malignant neoplasm of upper lobe, left bronchus or lung (principal); Z88.0 Allergy status to penicillin; Z88.1 Allergy status to other antibiotic agents
CPT/HCPCS: 96361; 96374; J1100

== ENCOUNTER 2023-01-14 12:22 | Outpatient (RCR) | payer BC, OTHER ==
[2023-01-18] MEDS ORDERED: POTA-165 PO (14:46)
[2023-01-18] MEDS ORDERED: POTA-151 PO (14:51)
[2023-01-19] MEDS ORDERED: POTA-151 PO (10:54)
== END 2023-01-18 ==
LOC: M ONCR 12:22
PROVIDERS: ATTEND General Practice
DX: Z51.0 Encounter for antineoplastic radiation therapy (principal); C34.12 Malignant neoplasm of upper lobe, left bronchus or lung

== ENCOUNTER → 2023-01-21 | Outpatient (CLI) | payer BC, OTHER ==
[~2023-01-21] MED LIST changes: +POTA-151 PO; +POTA-165 PO
== END ==
LOC: M ONCR 11:23
PROVIDERS: ATTEND General Practice
DX: K20.80 Other esophagitis without bleeding (principal); Z92.3 Personal history of irradiation

== ENCOUNTER → 2023-02-07 | Outpatient (CLI) | payer BC, OTHER ==
[~2023-02-07] MED LIST changes: +AZIT500T5 PO
== END ==
LOC: M WUC 10:24
PROVIDERS: ATTEND Specialist
DX: C34.90 Malignant neoplasm of unspecified part of unspecified bronchus or lung (principal); R05.9 Cough, unspecified

== ENCOUNTER 2023-02-14 09:48 | Emergency (ER) | payer BC, OTHER ==
[~2023-02-14] VITALS: Ht 157.5 cm; Wt 36.8 kg
[2023-02-14] MEDS ORDERED: MED REC IN PROGRESS XX SCH (11:25)
[2023-02-14 11:27] LABS: RSV AMPLIFICATION NEGATIVE (NEGATIVE)
[2023-02-14 11:32] LABS: BASO # 0.1 10^3/uL (0.0-0.2); BASO % 0.5 % (0.0-1.0); EOS # 0.2 10^3/uL (0.0-0.5); EOS % 1.2 % (0.0-3.0); HEMATOCRIT 32.9 % (36.0-47.0); HEMOGLOBIN 10.7 g/dl (12.0-15.5); LYMPH # 0.9 10^3/uL (1.5-5.0); LYMPH % 6.5 % (24.0-44.0); MEAN CORPUSCULAR HEMOGLOBIN 29.6 pg (27.0-33.0); MEAN CORPUSCULAR HGB CONC 32.5 g/dl (32.0-36.5); MEAN CORPUSCULAR VOLUME 91.1 fl (80.0-96.0); MONO # 1.3 10^3/uL (0.0-0.8); MONO % 8.9 % (2.0-8.0); NEUTROPHILS # 11.2 10^3/uL (1.5-8.5); PLATELET COUNT, AUTOMATED 402 10^3/uL (150-450); RED BLOOD COUNT 3.61 10^6/uL (4.00-5.40)
[2023-02-14] MEDS ORDERED: HOME MED LIST COMPLETE! XX SCH (11:35)
[2023-02-14 11:46] LABS: IONIZED CALCIUM 4.6 MG/DL (4.5-5.3)
[2023-02-14 12:23] LABS: ALBUMIN 2.8 G/DL (3.2-5.2); ALKALINE PHOSPHATASE 87 U/L (46-116); ALT/SGPT < 9 U/L (7.0-40); AST/SGOT 9 U/L (<34); BILIRUBIN,DIRECT 0.1 MG/DL (<0.4); BILIRUBIN,TOTAL 0.4 MG/DL (0.3-1.2); BLOOD UREA NITROGEN 9 MG/DL (9-23); CALCIUM LEVEL 8.5 MG/DL (8.3-10.6); CARBON DIOXIDE LEVEL 26 MMOL/L (20-31); CHLORIDE LEVEL 103 MMOL/L (98-107); CREATININE FOR GFR 0.42 MG/DL (0.55-1.30); GLOMERULAR FILTRATION RATE > 60.0 (>45); GLUCOSE, FASTING 97 MG/DL (74-106); SODIUM LEVEL 137 MMOL/L (136-145); TOTAL PROTEIN 5.4 G/DL (5.7-8.2)
[2023-02-14 12:34] LABS: MAGNESIUM LEVEL 1.8 MG/DL (1.8-2.4)
[2023-02-14] MEDS ORDERED: DOXYCYCLINE HYCLATE 100MG TABLET PO ONE (13:25)
[2023-02-14] MEDS ORDERED: DOXY-443 PO (13:26)
[2023-02-14 13:45] VITALS: BP 128/73; TEMP 99.3; O2SAT 96
== END 2023-02-14 13:57 | disposition home or self-care (01) ==
LOC: M ED 09:48
DX: J20.9 Acute bronchitis, unspecified (principal); C34.90 Malignant neoplasm of unspecified part of unspecified bronchus or lung; J44.9 Chronic obstructive pulmonary disease, unspecified; Z87.891 Personal history of nicotine dependence; Z79.899 Other long term (current) drug therapy; Z88.0 Allergy status to penicillin; Z88.1 Allergy status to other antibiotic agents

== ENCOUNTER → 2023-02-22 | Outpatient (CLI) | payer BC, OTHER ==
[~2023-02-22] MED LIST changes: +PROHANCE 279.3MG/ML 5ML VIAL As Ordered ONE
== END ==
LOC: M RAD 12:16
PROVIDERS: ATTEND General Practice
DX: C34.90 Malignant neoplasm of unspecified part of unspecified bronchus or lung (principal)

== ENCOUNTER → 2023-03-02 | Outpatient (CLI) | payer BC, OTHER ==
[~2023-03-02] MED LIST changes: +BREO1INH PO; +MEMA10TA19 PO; +MEMA1TAB3 PO; -PROHANCE 279.3MG/ML 5ML VIAL As Ordered ONE
== END ==
LOC: M ONCR 13:43
PROVIDERS: ATTEND General Practice
DX: C34.12 Malignant neoplasm of upper lobe, left bronchus or lung (principal); J44.9 Chronic obstructive pulmonary disease, unspecified; R07.0 Pain in throat; F17.210 Nicotine dependence, cigarettes, uncomplicated; Z71.2 Person consulting for explanation of examination or test findings; Z79.890 Hormone replacement therapy; Z79.891 Long term (current) use of opiate analgesic; Z79.899 Other long term (current) drug therapy; Z88.0 Allergy status to penicillin; Z88.1 Allergy status to other antibiotic agents; Z92.21 Personal history of antineoplastic chemotherapy; Z92.3 Personal history of irradiation

== ENCOUNTER 2023-03-18 08:35 | Outpatient (RCR) | payer BC, OTHER | END 2023-03-20 | LOC: M ONCR 08:35 | PROVIDERS: ATTEND General Practice | DX: Z51.0 Encounter for antineoplastic radiation therapy (principal) ==

== ENCOUNTER → 2023-03-23 | Outpatient (CLI) | payer BC, OTHER ==
[~2023-03-23] MED LIST changes: +ISOVUE-370 76% 100ML VIAL ONE
== END ==
LOC: M PLAIMG 10:16
PROVIDERS: ATTEND Specialist
DX: C34.90 Malignant neoplasm of unspecified part of unspecified bronchus or lung (principal)

== ENCOUNTER 2023-04-01 08:33 | Outpatient (RCR) | payer BC, OTHER ==
[~2023-04-01 08:33] MED LIST changes: -ISOVUE-370 76% 100ML VIAL ONE; +LEVO1TAB39 PO
[2023-04-18] MEDS ORDERED: FLUT1BLS8 (13:07)
[2023-04-18] MEDS ORDERED: ONDA8TAB8 PO (13:33)
[2023-04-18] MEDS ORDERED: PROC10TA5 PO (13:35)
[2023-04-25] MEDS ORDERED: PRED5PAK2 PO (08:43)
== END 2023-04-20 ==
LOC: M ONCR 08:33
PROVIDERS: ATTEND General Practice
DX: Z51.0 Encounter for antineoplastic radiation therapy (principal); C34.12 Malignant neoplasm of upper lobe, left bronchus or lung

== ENCOUNTER → 2023-05-23 | Outpatient (CLI) | payer BC, OTHER ==
[~2023-05-23] MED LIST changes: +CEPH500C PO; +FLUT1BLS8; +PRED5PAK2 PO
== END ==
LOC: M WUC 14:26
PROVIDERS: ATTEND Specialist
DX: C34.00 Malignant neoplasm of unspecified main bronchus (principal)

== ENCOUNTER 2023-06-03 13:17 | Emergency (ER) | payer BC, OTHER ==
[~2023-06-03] VITALS: Ht 157.5 cm; Wt 38.0 kg
[~2023-06-03 13:17] MED LIST changes: +BUDE0.254 INH; -BUDE0.254 NEB; -FLUT1BLS8; +FLUT1BLS8 PO
[2023-06-03 13:50] VITALS: BP 121/71; TEMP 98.7; O2SAT 95
[2023-06-03] MEDS ORDERED: SODIUM CHLORIDE 0.9% INJ 10 ML SYR IV PRN (14:25)
[2023-06-03] MEDS: NS 1,000 ML IV ONE (14:53)
[2023-06-03] MEDS ORDERED: CEPH500C PO (15:48)
[2023-06-03] MEDS ORDERED: CEPH25SS PO (15:48)
[2023-06-03] MEDS ORDERED: PROC10TA5 PO (15:54)
[2023-06-03] MEDS ORDERED: OXYC1SOL3 PO (15:54)
[2023-06-03] MEDS ORDERED: ONDA8TAB8 PO (15:54)
[2023-06-03] MEDS ORDERED: ACET-897 PO (15:56)
[2023-06-03] MEDS ORDERED: HOME MED LIST COMPLETE! XX SCH (16:00)
[2023-06-03] MEDS: SODIUM CHLORIDE 0.9% INJ 10 ML SYR IV SCH (17:02)
== END 2023-06-03 17:51 | disposition home or self-care (01) ==
LOC: M ED 13:17
DX: E86.0 Dehydration (principal); C34.90 Malignant neoplasm of unspecified part of unspecified bronchus or lung; K21.9 Gastro-esophageal reflux disease without esophagitis; J44.9 Chronic obstructive pulmonary disease, unspecified; Z88.8 Allergy status to other drugs, medicaments and biological substances; Z88.0 Allergy status to penicillin; Z79.1 Long term (current) use of non-steroidal anti-inflammatories (NSAID); Z79.899 Other long term (current) drug therapy

== ENCOUNTER → 2023-06-20 | Outpatient (CLI) | payer BC ==
[~2023-06-20] MED LIST changes: +ACET-897 PO; +CEPH25SS PO; +ISOVUE-370 76% 100ML VIAL As Ordered ONE; +POTA-151
== END ==
LOC: M RAD 12:48
PROVIDERS: ATTEND Specialist
DX: C34.12 Malignant neoplasm of upper lobe, left bronchus or lung (principal); R91.8 Other nonspecific abnormal finding of lung field
CPT/HCPCS: 71260; Q9967

== ENCOUNTER → 2023-06-29 | Outpatient (CLI) | payer BC ==
[~2023-06-29] MED LIST changes: -ISOVUE-370 76% 100ML VIAL As Ordered ONE; +MEMA10TA PO; -MEMA10TA19 PO; +PROHANCE 279.3MG/ML 5ML VIAL As Ordered ONE
== END ==
LOC: M RAD 12:52
PROVIDERS: ATTEND General Practice
DX: C34.90 Malignant neoplasm of unspecified part of unspecified bronchus or lung (principal)

== ENCOUNTER → 2023-07-05 | Outpatient (CLI) | payer BC ==
[~2023-07-05] MED LIST changes: +POTA20LI16 PO; -PROHANCE 279.3MG/ML 5ML VIAL As Ordered ONE
== END ==
LOC: M ONCR 09:01
PROVIDERS: ATTEND General Practice
DX: C77.3 Secondary and unspecified malignant neoplasm of axilla and upper limb lymph nodes (principal); C34.12 Malignant neoplasm of upper lobe, left bronchus or lung; F17.210 Nicotine dependence, cigarettes, uncomplicated; Z71.2 Person consulting for explanation of examination or test findings; Z92.21 Personal history of antineoplastic chemotherapy; Z92.3 Personal history of irradiation; Z79.891 Long term (current) use of opiate analgesic; Z79.51 Long term (current) use of inhaled steroids; Z79.890 Hormone replacement therapy; Z79.899 Other long term (current) drug therapy; Z88.0 Allergy status to penicillin; Z88.1 Allergy status to other antibiotic agents

== ENCOUNTER 2023-07-13 09:42 | Outpatient (RCR) | payer BC ==
[~2023-07-13 09:42] MED LIST changes: +DOXY-323 PO; -DOXY-443 PO; +FLUT1BLS8 INH; -FLUT1BLS8 PO
[2023-07-14] MEDS ORDERED: ONDA8TAB8 PO (10:29)
[2023-07-14] MEDS ORDERED: OXYC1SOL3 PO (10:29)
== END 2023-07-15 ==
LOC: M ONCR 09:42
PROVIDERS: ATTEND General Practice
DX: Z51.0 Encounter for antineoplastic radiation therapy (principal); C77.3 Secondary and unspecified malignant neoplasm of axilla and upper limb lymph nodes; C34.12 Malignant neoplasm of upper lobe, left bronchus or lung

== ENCOUNTER 2023-07-14 08:28 | Inpatient (IN) | payer BC, OTHER ==
[~2023-07-14] VITALS: Ht 157.5 cm; Wt 33.8 kg
[2023-07-14] MEDS ORDERED: SODIUM CHLORIDE 0.9% INJ 10 ML SYR IV PRN (09:25)
[2023-07-14 09:32] LABS: BASO % 0.1 % (0.0-1.0); EOS % 0.1 % (0.0-3.0); HEMATOCRIT 35.3 % (36.0-47.0); HEMOGLOBIN 11.7 g/dl (12.0-15.5); LYMPH # 0.5 10^3/uL (1.5-5.0); LYMPH % 2.6 % (24.0-44.0); MEAN CORPUSCULAR HEMOGLOBIN 28.3 pg (27.0-33.0); MEAN CORPUSCULAR HGB CONC 33.1 g/dl (32.0-36.5); MEAN CORPUSCULAR VOLUME 85.5 fl (80.0-96.0); MONO # 0.8 10^3/uL (0.0-0.8); MONO % 4.6 % (2.0-8.0); NEUTROPHILS # 16.4 10^3/uL (1.5-8.5); NEUTROPHILS % 91.9 % (36.0-66.0); PLATELET COUNT, AUTOMATED 344 10^3/uL (150-450); RED BLOOD COUNT 4.13 10^6/uL (4.00-5.40); WHITE BLOOD COUNT 17.9 10^3/uL (4.0-10.0)
[2023-07-14 09:49] LABS: INR 0.94; PARTIAL THROMBOPLASTIN TIME 29.9 SECONDS (24.8-34.2); PROTHROMBIN TIME 12.3 SECONDS (12.5-14.5)
[2023-07-14 09:54] LABS: ALKALINE PHOSPHATASE 73 U/L (46-116); ALT/SGPT 16 U/L (7.0-40); AST/SGOT 24 U/L (<34); BILIRUBIN,DIRECT 0.1 MG/DL (<0.4); BILIRUBIN,TOTAL 0.4 MG/DL (0.3-1.2); BLOOD UREA NITROGEN 12 MG/DL (9-23); CARBON DIOXIDE LEVEL 24 MMOL/L (20-31); CHLORIDE LEVEL 99 MMOL/L (98-107); CPK CREATINE PHOSPHOKINASE 39 U/L (34-145); CREATININE FOR GFR 0.44 MG/DL (0.55-1.30); GLOMERULAR FILTRATION RATE > 60.0 (>45); GLUCOSE, FASTING 103 MG/DL (74-106); MB/CK RELATIVE INDEX 5.12 (< OR =4); POTASSIUM SERUM 3.5 MMOL/L (3.5-5.1); SODIUM LEVEL 133 MMOL/L (136-145); TOTAL PROTEIN 5.7 G/DL (5.7-8.2)
[2023-07-14 09:58] LABS: THYROID STIMULATING HORMONE 18.921 uIU/ML (0.55-4.78)
[2023-07-14] MEDS: cefTRIAXone SOD 2 GM in D5W MINI-BAG PLUS 50 ML IV ONE (10:05)
[2023-07-14] MEDS: NS 1,000 ML IV SCH (10:05)
[2023-07-14] MEDS ORDERED: OXYC1SOL3 PO (10:29)
[2023-07-14] MEDS ORDERED: ONDA8TAB8 PO (10:29)
[2023-07-14] MEDS ORDERED: HOME MED LIST COMPLETE! XX SCH (10:30)
[2023-07-14] MEDS: MORPHINE 2 MG/ML 1ML VIAL IV ONE (11:43)
[2023-07-14] MEDS ORDERED: ONDANSETRON 4MG 2ML VIAL As Ordered ONE (11:48)
[2023-07-14] MEDS: ONDANSETRON 4MG 2ML VIAL IV ONE (11:50)
[2023-07-14] MEDS ORDERED: ACETAMINOPHEN TAB 650MG DOSE (2X325MG) PO PRN (13:00)
[2023-07-14] MEDS ORDERED: ONDANSETRON 4MG ORAL DISINTEGRATING TAB PO PRN (13:00)
[2023-07-14] MEDS ORDERED: ALBUTEROL SULFATE 2.5MG/0.5ML INH NEB SOLN NEB PRN (13:35)
[2023-07-14] MEDS ORDERED: IPRATROPIUM 0.5MG/ALBUTEROL 2.5MG INH SOL UD 3ML (DUONEB) NEB PRN (13:35)
[2023-07-14] MEDS: DOXYCYCLINE HYCLATE 100 MG in D5W MINI-BAG PLUS 100 ML IV SCH (14:10)
[2023-07-14] MEDS: PANTOPRAZOLE 40MG VIAL IV SCH (14:10)
[2023-07-14 14:12] LABS: PROCALCITONIN 0.07 ng/ml
[2023-07-14 15:00] VITALS: BP 99/67; TEMP 97.5; O2SAT 93
[2023-07-14] MEDS: SODIUM CHLORIDE 0.9% INJ 10 ML SYR IV PRN (16:39)
[2023-07-14] MEDS: oxyCODONE 5MG TAB PO PRN (16:39)
[2023-07-14] MEDS: MORPHINE 4 MG/ML 1ML VIAL IV PRN (18:40)
[2023-07-14 21:30] VITALS: BP 98/56; TEMP 97.5; O2SAT 94
[2023-07-14] MEDS: DOCUSATE SODIUM 100MG CAPSULE PO SCH (21:56)
[2023-07-15] MEDS ORDERED: EPINEPHrine 1MG/10ML SYRINGE 1.5IN ONE (04:03)
[2023-07-15] MEDS ORDERED: AMIODARONE 150MG/3ML VIAL ONE (04:03)
[2023-07-15] MEDS ORDERED: SODIUM BICARBONATE 8.4% INJ 50ML SYRINGE ONE (04:03)
[2023-07-15] MEDS: LEVOTHYROXINE 100MCG TABLET (0.1MG) PO SCH (06:00)
[2023-07-15] MEDS: SODIUM CHLORIDE 0.9% INJ 10 ML SYR IV SCH (08:29)
== END 2023-07-15 10:40 | disposition expired | DRG 253 ==
LOC: M ED 08:28 → M ED INP 12:56 → ENRESERV 14:16 → M MSPAV 15:00
PROVIDERS: ADMIT Hospitalist; ATTEND Hospitalist
PROC: 30233N1 Transfusion of Nonautologous Red Blood Cells into Peripheral Vein, Percutaneous Approach (ICD-10-PCS; 2023-07-14)
PROC: 0BH17EZ Insertion of Endotracheal Airway into Trachea, Via Natural or Artificial Opening (ICD-10-PCS; principal; 2023-07-15)
DX: K92.0 Hematemesis (principal); R57.8 Other shock; E43 Unspecified severe protein-calorie malnutrition; I31.39 Other pericardial effusion (noninflammatory); C77.0 Secondary and unspecified malignant neoplasm of lymph nodes of head, face and neck; C34.90 Malignant neoplasm of unspecified part of unspecified bronchus or lung; J44.9 Chronic obstructive pulmonary disease, unspecified; K29.70 Gastritis, unspecified, without bleeding; E03.9 Hypothyroidism, unspecified; I46.9 Cardiac arrest, cause unspecified; R09.1 Pleurisy; Z92.3 Personal history of irradiation; Z92.21 Personal history of antineoplastic chemotherapy; Z79.890 Hormone replacement therapy; Z79.899 Other long term (current) drug therapy; Z88.0 Allergy status to penicillin; Z88.1 Allergy status to other antibiotic agents